=== PATIENT | male | born 1990 | race Caucasian/White ===

== ENCOUNTER 2020-05-29 11:03 | Inpatient (IN) | payer OTHER ==
--- NOTE | 2020-05-29 11:30 | PDOC ---
History of Present Illness - General Chief Complaint: Pain Stated Complaint: ABD PAIN Time Seen by Provider: 05/29/20 11:29 - History of Present Illness Initial Comments: 05/29/20 11:39 30 y.o. M no significant PMHx presenting from urgent care due to lower abdominal pain. Patient states he has been having lower abdominal pain since Thursday he does not recall any dietary changes. Patient states the pain is constant and is moderately relieved with defecation although it comes back promptly. He reports no fevers, chills, headache, nausea, vomiting or diarrhea. He has been taking tylenol for pain. PMHx: lactose intolerance Meds: In Chart Allergies: NKA Past History - Medical History Allergies/Adverse Reactions: Allergies Allergy/AdvReac Type Severity Reaction Status Date / Time No Known Allergies Allergy Verified 05/29/20 11:06 Home Medications: Ambulatory Orders NK [No Known Home Medication] 05/29/20 COPD: No - Psycho-Social/Smoking History Smoking History: Current every day smoker Have you smoked in the past 12 months: Yes Number of Cigarettes Smoked Daily: 0 Information on smoking cessation initiated: Yes - Substance Abuse Hx (Audit-C & DAST Scrn) How often the patient has a drink containing alcohol: Never Score: In Men: 4 or > Positive; In Women: 3 or > Positive: 0 Screen Result (Pos requires Nsg. Audit-10AR): Negative In the last yr the pt used illegal drug/Rx for NonMed reason: No Score: Yes response is considered Positive: 0 Screen Result (Positive result requires Nsg. DAST-10): Negative Review of Systems - Review of Systems Able to Perform ROS?: Yes Is the patient limited Citizen Of [place] proficient: No Constitutional: No: Chills, Fever HEENTM: No: Blurred Vision, Double Vision Respiratory: No: Cough, Shortness of Breath Cardiac (ROS): No: Chest Pain, Lightheadedness ABD/GI: Yes: Abdominal cramping. No: Constipated, Diarrhea, Nausea, Vomiting : No: Burning, Dysuria Musculoskeletal: No: Back Pain, Muscle Weakness Integumentary: No: Bruising, Pruritus, Rash Neurological: No: Headache, Numbness, Dizziness Hematologic/Lymphatic: No: Blood Clots, Easy Bruising *Physical Exam - Vital Signs Last Vital Signs Temp Pulse Resp BP Pulse Ox 100.2 F H 68 18 139/80 100 05/29/20 11:07 05/29/20 11:07 05/29/20 11:07 05/29/20 11:07 05/29/20 11:07 - Physical Exam General Appearance: Yes: Nourished, Appropriately Dressed. No: Apparent Distress Respiratory/Chest: positive: Lungs Clear, Normal Breath Sounds. negative: Chest Tender, Respiratory Distress, Accessory Muscle Use, Crackles, Rales, Stridor, Wheezing Cardiovascular: positive: Regular Rhythm, Regular Rate. negative: Edema, JVD, Murmur Gastrointestinal/Abdominal: positive: Normal Bowel Sounds, Tender (Suprapubic). negative: Flat, Soft, Guarding, Rebound, Tenderness Musculoskeletal: positive: Normal Inspection, CVA Tenderness Extremity: positive: Normal Inspection. negative: Tender, Coldness, Pedal Edema, Swelling, Calf Tenderness Integumentary: positive: Normal Color, Dry, Warm. negative: Rash, Swelling Neurologic: positive: Fully Oriented, Alert, Normal Mood/Affect, Normal Response ED Treatment Course - LABORATORY CBC & Chemistry Diagram: 05/31/20 07:15 05/31/20 07:15 Medical Decision Making - Medical Decision Making 05/29/20 11:43 30 y.o. M no significant PMHx presenting from urgent care due to lower abdominal pain. DDx: Appendicitis, Colitis, pancreatitis, UTI, hernia, Labs: WBC 20.1, Na 138, K 4.6, TBili 1.2, Alk Phos 166, Lipase 49 CT: Findings suggestive of colitis with possible infectious or inflammatory etiology, however diverticulitis should also be considered given the context of few small scattered diverticuli. UA: 1+ Ketones Given 1 dose of zosyn in the ED Dispo: Admit to med surg 05/29/20 17:44 Discharge - Discharge Information Problems reviewed: Yes Clinical Impression/Diagnosis: Segmental colitis associated with diverticulosis - Follow up/Referral - Patient Discharge Instructions - Post Discharge Activity
[2020-05-29] MEDS ORDERED: ACETAMINOPHEN 1000 MG/100 ML VIAL (NON FORMULARY) IVPB ONE (11:56)
[2020-05-29] MEDS ORDERED: ACETAMINOPHEN INJECTION 100 ML IVPB ONE (12:13)
[2020-05-29 12:24] LABS: BASO % 0.2 % (0-2.0); EOS % 0.6 % (0-4.5); HEMATOCRIT 40.1 % (35.4-49); HEMOGLOBIN 13.2 GM/dL (11.7-16.9); LYMPH % 8.4 % (8-40); MCH 31.1 pg (25.7-33.7); MEAN CELL VOLUME 94.3 fl (80-96); MEAN PLT VOLUME 9.7 fl (7.5-11.1); MONO % 6.9 % (3.8-10.2); NEUT % 83.9 % (42.8-82.8); PLATELET COUNT 206 K/MM3 (134-434); RBC 4.25 M/mm3 (4.00-5.60); RDW 12.7 % (11.9-15.9); WHITE BLOOD COUNT 20.1 K/mm3 (4.0-10.0)
[2020-05-29 12:27] LABS: PH,URINE 6.5 (5.0-8.0); URINE APPEARANCE CLEAR; URINE BILIRUBIN NEGATIVE (NEGATIVE); URINE COLOR YELLOW; URINE GLUCOSE (UA) NEGATIVE (NEGATIVE); URINE KETONE 1+ (NEGATIVE); URINE LEUK ESTERASE NEGATIVE (NEGATIVE); URINE NITRITE NEGATIVE (NEGATIVE); URINE PROTEIN NEGATIVE (NEGATIVE)
[2020-05-29] MEDS ORDERED: PIPERACILLIN/TAZOB 3.375 GM 4.5 GM in DEXTROSE 5%-WATER - 50 ML IVPB ONE (12:34)
[2020-05-29] MEDS ORDERED: PIPERACILLIN/TAZOB 4.5 GM 4.5 GM/100 ML BAG IVPB ONE (12:44)
[2020-05-29 13:07] LABS: BILIRUBIN,TOTAL 1.2 mg/dL (0.2-1); CALCIUM 9.5 mg/dL (8.5-10.1); CREATININE 1.1 mg/dL (0.55-1.3); POTASSIUM 4.6 mmol/L (3.5-5.1); TOT PROT 8.3 g/dl (6.4-8.2)
--- NOTE | 2020-05-29 13:35 | PDOC ---
Documentation entered by Adalberto Reynoso SCRIBE, acting as scribe for Jennifer Moser MD. Jennifer Moser MD: This documentation has been prepared by the vidaibe, Adalberto Reynoso SCRIBE, under my direction and personally reviewed by me in its entirety. I confirm that the documentation accurately reflects all work, treatment, procedures, and medical decision making performed by me. Attending Attestation - Resident Resident Name: ChenteSang - ED Attending Attestation I have performed the following: I have examined & evaluated the patient, The case was reviewed & discussed with the resident, I agree w/resident's findings & plan, Exceptions are as noted - HPI HPI: 05/29/20 11:58 The patient is a 30 year old male with no significant past medical history who presents to the emergency department, sent from Urgent Care for evaluation of lower abdominal pain that began four days ago. The patient describes pain is constant and mildly improved with bowel movements. He states the pain is the worst in the LLQ. Denies testicular pain, penile DC. Denies dysuria, hematuria, urinary frequency. He notes taking Tylenol with minimal relief. Denies hx similar pain. Pt sexually active with 1 partner, denies hx STI. Denies changes in diet. The patient denies chest/back pain, cough, and shortness of breath. Denies fever, chills, nausea, vomiting, and/or any GI symptoms. Denies any other symptoms. Allergies: NKA, lactose intolerance Social Hx: The patient reports he is a current every day smoker. PCP: Dr. Cardoza - Physicial Exam PE: 05/29/20 11:52 GENERAL: Awake, alert, and fully oriented, in no acute distress. Febrile orally to 100.3 EYES: PERRLA, EOMI, sclera anicteric, conjunctiva clear ENT: Nares patent, oropharynx clear without exudates. Moist mucosa NECK: Normal ROM, supple, no lymphadenopathy, JVD, or masses LUNGS: Breath sounds equal, clear to auscultation bilaterally. No wheezes, and no crackles HEART: Regular rate and rhythm, normal S1 and S2, no murmurs, rubs or gallops ABDOMEN: Soft, +suprapubic and LLQ ttp, normoactive bowel sounds. No guarding, no rebound. No masses. No CVAT : Normal ext genitalia, no penile or testicular ttp, no DC, no LAD or masses in groin EXTREMITIES: Normal range of motion, no edema. No clubbing or cyanosis. No cords, erythema, or tenderness NEUROLOGICAL: Normal speech, cranial nerves intact, equal strength and sensation b/l SKIN: Warm, Dry, normal turgor, no rashes or lesions noted." - Medical Decision Making 05/29/20 13:34 30yo M prsents to the ED with suprapubic/LLQ pain, febrile here but not toxic appearing DDx diverticulitis vs UTI vs colitis vs enteritis Plan -labs -UA -CTAP w IV contrast -pain control -reassess 05/29/20 16:23 WBC 20, pt covered with zosyn pain well controlled CTAP with diverticulitis +/- colitis Plan to admit for Iv abx and GI c/s Discharge - Discharge Information Problems reviewed: Yes - Follow up/Referral Referrals: Susan Cardoza MD [Primary Care Provider] - - Patient Discharge Instructions - Post Discharge Activity
[2020-05-29 13:57] LABS: ANISOCYTOSIS 0; HELMET CELLS 0; HOWELL-JOLLY BODIES 0; MACROCYTOSIS 0; OVALOCYTE 0; PLATELET ESTIMATE NORMAL; ROULEAU 0; SICKELED CELLS 0; TARGET CELLS 0; TEAR DROP CELLS 0; TOXIC GRANULATION 0
--- NOTE | 2020-05-29 17:20 | HP ---
CHIEF COMPLAINT: abdominal cramping PCP: HISTORY OF PRESENT ILLNESS: Patient is a 30 year old male with history of lactose intolerance presents with complaint of lower abdominal cramping. Endorses symptoms began four days ago with sudden onset. Localized to infraumbilical abdominal area, without radiation. He initially thought the symptoms were similar to his symptoms after consuming lactose, however the symptoms continued to progress. He attempted Gas- X, Tums, and Tylenol which were minimally palliative. He has been tolerating oral intake- last ate turkey meatball dinner yesterday evening. His last bowel movement was last night, solid without melena or hematochezia. He denies any vomiting. Patient denies subjective fevers, chills, shortness of breath, chest pain, palpitations, nausea, vomiting. Denies prior colonoscopy, or upper endoscopy. ER course was notable for: (1) CT abdomen, pelvis (2) (3) Recent Travel: denies PAST MEDICAL HISTORY: lactose intolerance PAST SURGICAL HISTORY: denies FAMILY HISTORY: Unremarkable Social History: Lives with female partner, and child. Works as musician, produces beats. Independent in activities of daily living. Smoking: Denies smoking cigarettes Alcohol: Endorses 1-2 cups of Tequila on occasion Drugs: Admits smoking 3-4 marijuana cigarettes daily. Last smoked yesterday. Allergies No Known Allergies Allergy (Verified 05/29/20 11:06) HOME MEDICATIONS: REVIEW OF SYSTEMS CONSTITUTIONAL: Absent: fever, chills, diaphoresis, generalized weakness, malaise, loss of appetite, weight change HEENT: Absent: rhinorrhea, nasal congestion, throat pain, throat swelling, difficulty swallowing, mouth swelling, ear pain, eye pain, visual changes CARDIOVASCULAR: Absent: chest pain, syncope, palpitations, irregular heart rate, lightheadedness, peripheral edema RESPIRATORY: Absent: cough, shortness of breath, dyspnea with exertion, orthopnea, wheezing, stridor, hemoptysis GASTROINTESTINAL: Admits: abdominal cramping, bloating. Absent: nausea, vomiting, diarrhea, constipation, melena, hematochezia GENITOURINARY: Absent: dysuria, frequency, urgency, hesitancy, hematuria, flank pain, genital pain MUSCULOSKELETAL: Absent: myalgia, arthralgia, joint swelling, back pain, neck pain SKIN: Absent: rash, itching, pallor HEMATOLOGIC/IMMUNOLOGIC: Absent: easy bleeding, easy bruising, lymphadenopathy, frequent infections ENDOCRINE: Absent: unexplained weight gain, unexplained weight loss, heat intolerance, cold intolerance NEUROLOGIC: Absent: headache, focal weakness or paresthesias, dizziness, unsteady gait, seizure, mental status changes, bladder or bowel incontinence PSYCHIATRIC: Absent: anxiety, depression, suicidal or homicidal ideation, hallucinations. PHYSICAL EXAMINATION Vital Signs - 24 hr 05/29/20 11:07 Temperature 100.2 F H Pulse Rate 68 Respiratory 18 Rate Blood Pressure 139/80 O2 Sat by Pulse 100 Oximetry (%) GENERAL: The patient is awake, alert, and fully oriented, in no acute distress. HEAD: Normocephalic, atraumatic. EYES: PERRL, extraocular movements intact, sclera anicteric, conjunctiva clear. ENT: Oropharynx clear, without erythema or exudates. Moist mucous membranes. NECK: Trachea midline, full range of motion. Supple without lymphadenopathy. LUNGS: Breath sounds equal, clear to auscultation bilaterally. No wheezes, no crackles. No accessory muscle use. HEART: Regular rate and rhythm. S1, S2 without murmur, rub or gallop. ABDOMEN: Soft, nondistended. Tender to deep palpation at left lower, and right lower abdominal quadrants. No rebound tenderness, no guarding. Normoactive bowel sounds x4 quadrants. No hepatosplenomegaly, no masses appreciated. EXTREMITIES: 2+ radial, dorsalis pedis pulses bilaterally. Warm, well-perfused. No lower extremity edema bilaterally. NEUROLOGICAL: Cranial nerves II through XII grossly intact. Normal speech. No gross focal deficits. PSYCH: Normal mood, normal affect upon my encounter. SKIN: Warm, dry. Laboratory Results - last 24 hr 05/29/20 05/29/20 05/29/20 12:00 12:00 12:00 WBC 20.1 H RBC 4.25 Hgb 13.2 Hct 40.1 MCV 94.3 MCH 31.1 MCHC 33.0 RDW 12.7 Plt Count 206 MPV 9.7 Absolute Neuts (auto) 16.8 H Neutrophils % 83.9 H Neutrophils % (Manual) 75.8 Band Neutrophils % 0.0 Lymphocytes % 8.4 Lymphocytes % (Manual) 16.8 Monocytes % 6.9 Monocytes % (Manual) 6 Eosinophils % 0.6 Eosinophils % (Manual) 0.0 Basophils % 0.2 Basophils % (Manual) 0.0 Myelocytes % (Man) 0 Promyelocytes % (Man) 0 Blast Cells % (Manual) 0 Nucleated RBC % 0 Metamyelocytes 0 Hypochromia 0 Toxic Granulation 0 Dohle Bodies 0 Platelet Estimate Normal Polychromasia 0 Poikilocytosis 0 Basophilic Stippling 0 Anisocytosis 0 Microcytosis 0 Macrocytosis 0 Spherocytes 0 Sickle Cells 0 Target Cells 0 Tear Drop Cells 0 Ovalocytes 0 Stomatocytes 0 Helmet Cells 0 [place] Bodies 0 [place] Rings 0 [place] Cells 0 Acanthocytes (Spur) 0 Rouleaux 0 Fragmented RBCs 0 Schistocytes 0 Sodium 138 Potassium 4.6 Chloride 103 Carbon Dioxide 30 Anion Gap 5 L BUN 12.0 Creatinine 1.1 Est GFR (CKD-EPI)AfAm 103.85 Est GFR (CKD-EPI)NonAf 89.61 Random Glucose 99 Calcium 9.5 Total Bilirubin 1.2 H AST 27 ALT 55 Alkaline Phosphatase 166 H Total Protein 8.3 H Albumin 4.0 Lipase 49 L Urine Color Yellow Urine Appearance Clear Urine pH 6.5 Ur Specific [place] 1.023 Urine Protein Negative Urine Glucose (UA) Negative Urine Ketones 1+ H Urine Blood Negative Urine Nitrite Negative Urine Bilirubin Negative Urine Urobilinogen 1.0 Ur Leukocyte Esterase Negative ASSESSMENT/PLAN: Patient is a 30 year old male with history of lactose intolerance presents with complaint of lower abdominal cramping. Colitis vs. Diverticulitis -CT abdomen, pelvis reveals scattered diverticula, with thickening of distal sigmoid colon, concerning for colitis, however cannot exclude diverticulitis -WBC 20, Temperature 100.2F -Maintain NPO for now -IV normal saline at 100mL/ hour -GI recommendations (Dr. Barnes) appreciated -ID evaluation ( ) appreciated Hyperbilirubinemia -Total bilirubin 1.2, without rise on AST/ ALT. -Obtain direct bilirubin. Will perform right upper quadrant ultrasound to evaluate for biliary stone -Monitor transaminases History of marijuana use -Counselled regarding abstinence FEN -IV normal saline at 100mL/ hour -Follow BMP -NPO Prophylaxis -Lovenox 40mg subq daily Disposition -Admit to medical- surgical floor Family Medical History Family History: Unremarkable Visit type - Emergency Visit Emergency Visit: Yes ED Registration Date: 05/29/20 Care time: The patient presented to the Emergency Department on the above date and was hospitalized for further evaluation of their emergent condition. - New Patient This patient is new to me today: Yes Date on this admission: 05/29/20 - Critical Care Critical Care patient: No ATTENDING PHYSICIAN STATEMENT I saw and evaluated the patient. I reviewed the resident's note and discussed the case with the resident. I agree with the resident's findings and plan as documented. SUBJECTIVE: OBJECTIVE: ASSESSMENT AND PLAN:
[2020-05-29] MEDS ORDERED: PIPERACILLIN/TAZOB 3.375 GM 3.375 GM/50 ML BAG IVPB ONE (17:47)
[2020-05-29 17:48] LABS: BILIRUBIN,DIRECT 0.3 mg/dL (0.0-0.2)
[2020-05-29] MEDS: SODIUM CHLORIDE 1,000 ML IV SCH (18:05)
[2020-05-29] MEDS: PIPERACILLIN/TAZOB 3.375 GM 3.375 GM in DEXTROSE 5%-WATER - 50 ML IVPB SCH (18:05)
--- NOTE | 2020-05-29 22:02 | PN ---
Teaching Attending Note Name of Resident: Jamel Luna ATTENDING PHYSICIAN STATEMENT I saw and evaluated the patient. I reviewed the resident's note and discussed the case with the resident. I agree with the resident's findings and plan as documented. SUBJECTIVE: Patient seen and examined at bedside, admitted for colitis, likely infectious. VSS. OBJECTIVE: GA AAox3, NAD HEENT NC/AT, EOMI, neck supple, no oral ulcers Chest CTAB CVS s1, s2+, RRR Abd lower abd. tenderness, BS+, no guarding, ND Ext no LE edema Vital Signs (72 hours) 05/29/20 05/29/20 11:07 18:03 Temperature 100.2 F H Pulse Rate 68 Pulse Rate [ 68 Right Radial] Respiratory 18 18 Rate Blood Pressure 139/80 Blood Pressure 142/80 [Left Arm] O2 Sat by Pulse 100 100 Oximetry (%) Laboratory Results - last 24 hr 05/29/20 05/29/20 05/29/20 12:00 12:00 12:00 WBC 20.1 H RBC 4.25 Hgb 13.2 Hct 40.1 MCV 94.3 MCH 31.1 MCHC 33.0 RDW 12.7 Plt Count 206 MPV 9.7 Absolute Neuts (auto) 16.8 H Neutrophils % 83.9 H Neutrophils % (Manual) 75.8 Band Neutrophils % 0.0 Lymphocytes % 8.4 Lymphocytes % (Manual) 16.8 Monocytes % 6.9 Monocytes % (Manual) 6 Eosinophils % 0.6 Eosinophils % (Manual) 0.0 Basophils % 0.2 Basophils % (Manual) 0.0 Myelocytes % (Man) 0 Promyelocytes % (Man) 0 Blast Cells % (Manual) 0 Nucleated RBC % 0 Metamyelocytes 0 Hypochromia 0 Toxic Granulation 0 Dohle Bodies 0 Platelet Estimate Normal Polychromasia 0 Poikilocytosis 0 Basophilic Stippling 0 Anisocytosis 0 Microcytosis 0 Macrocytosis 0 Spherocytes 0 Sickle Cells 0 Target Cells 0 Tear Drop Cells 0 Ovalocytes 0 Stomatocytes 0 Helmet Cells 0 [place] Bodies 0 [place] Rings 0 [place] Cells 0 Acanthocytes (Spur) 0 Rouleaux 0 Fragmented RBCs 0 Schistocytes 0 Sodium 138 Potassium 4.6 Chloride 103 Carbon Dioxide 30 Anion Gap 5 L BUN 12.0 Creatinine 1.1 Est GFR (CKD-EPI)AfAm 103.85 Est GFR (CKD-EPI)NonAf 89.61 Random Glucose 99 Calcium 9.5 Total Bilirubin 1.2 H Direct Bilirubin 0.3 H AST 27 ALT 55 Alkaline Phosphatase 166 H Total Protein 8.3 H Albumin 4.0 Lipase 49 L Urine Color Yellow Urine Appearance Clear Urine pH 6.5 Ur Specific [place] 1.023 Urine Protein Negative Urine Glucose (UA) Negative Urine Ketones 1+ H Urine Blood Negative Urine Nitrite Negative Urine Bilirubin Negative Urine Urobilinogen 1.0 Ur Leukocyte Esterase Negative Home Medications Medication Instructions Recorded NK [No Known Home Medication] 05/29/20 Current Medications Generic Name Dose Route Start Last Admin Trade Name Freq PRN Reason Stop Dose Admin Enoxaparin Sodium 40 mg 05/30/20 10:00 Lovenox - SQ DAILY ZUNILDA Sodium Chloride 1,000 mls @ 100 mls/hr 05/29/20 17:15 05/29/20 18:05 Normal Saline - IV 05/30/20 10:00 100 mls/hr ASDIR ZUNILDA Administration Piperacillin Sod/Tazobactam 50 mls @ 100 mls/hr 05/29/20 18:00 Sod 3.375 gm/ Dextrose IVPB Q8H-IV ZUNILDA Protocol Piperacillin Sod/Tazobactam 50 mls @ 100 mls/hr 05/29/20 18:00 05/29/20 18:05 Sod 3.375 gm/ Dextrose IVPB 05/30/20 10:29 100 mls/hr Q8H-IV ZUNILDA Administration Protocol ASSESSMENT AND PLAN: 30 M Colitis likely infectious Suspected ?UC v.s. crohn's Plan: NPO, Aggressive IVF Cont. Zosyn if diarrhea occurs send c. diff Avoid NSAIDs Will need colonoscopy likely as OP GI evaluation DVT ppx: Lovenoc SC
[2020-05-30] MEDS ORDERED: ACETAMINOPHEN 1000 MG/100 ML VIAL (NON FORMULARY) IVPB ONE (00:38)
[2020-05-30] MEDS ORDERED: PIPERACILLIN/TAZOBACTAM 3.375 GM VIAL IVPB ONE ×2 (00:48→10:54)
[2020-05-30] MEDS ORDERED: DEXTROSE 5%-WATER - 50 ML IVPB ONE ×3 (00:48→15:42)
[2020-05-30 01:42] VITALS: BMI 28.3
[2020-05-30] MEDS: PIPERACILLIN/TAZOB 3.375 GM 3.375 GM in DEXTROSE 5%-WATER - 50 ML IVPB SCH ×4 (02:15→14:23)
[2020-05-30] MEDS: SODIUM CHLORIDE 1,000 ML IV SCH (03:08)
--- NOTE | 2020-05-30 07:37 | PN ---
Progress Note (short form) - Note Progress Note: GI CONSULT DICTATED CLEAR LIQUID DIET C/W ABX STOOL CULTURE / CDIFF IF DEVELOPS DIARRHEA OUTPT DIAGNOSTIC COLONOSCOPY IN 6-8 WEEKS
[2020-05-30 09:10] LABS: MCH 31.4 pg (25.7-33.7); MCHC 33.4 g/dl (32.0-35.9); MEAN CELL VOLUME 93.8 fl (80-96); MEAN PLT VOLUME 9.9 fl (7.5-11.1); PLATELET COUNT 187 K/MM3 (134-434); RBC 3.84 M/mm3 (4.00-5.60); RDW 12.2 % (11.9-15.9); WHITE BLOOD COUNT 15.2 K/mm3 (4.0-10.0)
[2020-05-30 09:38] LABS: ALBUMIN 3.4 g/dl (3.4-5.0); BILIRUBIN,TOTAL 2.1 mg/dL (0.2-1); BLOOD UREA NITROGEN 16.7 mg/dL (7-18); CALCIUM 8.9 mg/dL (8.5-10.1); CREATININE 0.9 mg/dL (0.55-1.3); MAGNESIUM 2.2 mg/dL (1.8-2.4); PHOSPHOROUS 3.6 mg/dL (2.5-4.9); POTASSIUM 3.7 mmol/L (3.5-5.1); TOT PROT 7.2 g/dl (6.4-8.2)
--- NOTE | 2020-05-30 09:52 | EKG ---
Test Reason : Blood Pressure : / mmHG Vent. Rate : 073 BPM Atrial Rate : 073 BPM P-R Int : 146 ms QRS Dur : 082 ms QT Int : 358 ms P-R-T Axes : 055 022 010 degrees QTc Int : 394 ms NORMAL SINUS RHYTHM WITH SINUS ARRHYTHMIA NORMAL ECG NO PREVIOUS ECGS AVAILABLE Confirmed by MD Raffi, Marlon ([id number]) on 05/30/2020 9:51:26 AM Referred By: Confirmed By:Marlon Nugent MD
--- NOTE | 2020-05-30 10:12 | PN ---
Physical Exam: SUBJECTIVE: Patient seen and examined at the bedside. In no acute distress. Tells me he has not eaten any food since Thursday evening. Denies abdominal paredes, nausea or vomiting. OBJECTIVE: Patient is a 30 year old male with past medical history of childhood asthma. He presents to the ED on 05/29/2020 with abdominal pain and is found to have colitis and diverticulitis per CT scan. Patient states symptoms began four days ago with sudden onset. Localized to umbilical abdominal area, without radiation. abdominal pain has since resolved. imaging: covid 19: negative abd/pelvis ct with contrast 05/29/2020: significant distal sigmoid colon wall thickening with adjacent fat stranding and prominent mesenteric lymph nodes. findings suggestive of colitis and possible infectious or inflammagtory etiology. diverticulitis should also be considered given context of few scattered diverticuli noted in the colon. Period Temp Pulse Resp BP Sys/Aguila Pulse Ox Last 24 Hr 98.3 F-100.2 F 68-111 16-18 133-142/80-97 96-100 GENERAL: The patient is awake, alert, and fully oriented, in no acute distress. HEAD: Normal with no signs of trauma. EYES: PERRL, extraocular movements intact, sclera anicteric, conjunctiva clear. No ptosis. ENT: Ears normal, nares patent, oropharynx clear without exudates, moist mucous membranes. NECK: Trachea midline, full range of motion, supple. LUNGS: Breath sounds equal, clear to auscultation bilaterally, no wheezes HEART: Regular rate and rhythm ABDOMEN: Soft, nontender, nondistended, normoactive bowel sounds, no guarding, no rebound EXTREMITIES: no edema. NEUROLOGICAL: Normal speech, gait not observed. PSYCH: Normal mood, normal affect. SKIN: Warm, dry, normal turgor, no rashes or lesions noted Laboratory Results - last 24 hr 05/29/20 05/29/20 05/29/20 12:00 12:00 12:00 WBC 20.1 H RBC 4.25 Hgb 13.2 Hct 40.1 MCV 94.3 MCH 31.1 MCHC 33.0 RDW 12.7 Plt Count 206 MPV 9.7 Absolute Neuts (auto) 16.8 H Neutrophils % 83.9 H Neutrophils % (Manual) 75.8 Band Neutrophils % 0.0 Lymphocytes % 8.4 Lymphocytes % (Manual) 16.8 Monocytes % 6.9 Monocytes % (Manual) 6 Eosinophils % 0.6 Eosinophils % (Manual) 0.0 Basophils % 0.2 Basophils % (Manual) 0.0 Myelocytes % (Man) 0 Promyelocytes % (Man) 0 Blast Cells % (Manual) 0 Nucleated RBC % 0 Metamyelocytes 0 Hypochromia 0 Toxic Granulation 0 Dohle Bodies 0 Platelet Estimate Normal Polychromasia 0 Poikilocytosis 0 Basophilic Stippling 0 Anisocytosis 0 Microcytosis 0 Macrocytosis 0 Spherocytes 0 Sickle Cells 0 Target Cells 0 Tear Drop Cells 0 Ovalocytes 0 Stomatocytes 0 Helmet Cells 0 [place] Bodies 0 Creede Rings 0 Wilsey Cells 0 Acanthocytes (Spur) 0 Rouleaux 0 Fragmented RBCs 0 Schistocytes 0 Sodium 138 Potassium 4.6 Chloride 103 Carbon Dioxide 30 Anion Gap 5 L BUN 12.0 Creatinine 1.1 Est GFR (CKD-EPI)AfAm 103.85 Est GFR (CKD-EPI)NonAf 89.61 Random Glucose 99 Calcium 9.5 Phosphorus Magnesium Total Bilirubin 1.2 H Direct Bilirubin 0.3 H AST 27 ALT 55 Alkaline Phosphatase 166 H Total Protein 8.3 H Albumin 4.0 Lipase 49 L Urine Color Yellow Urine Appearance Clear Urine pH 6.5 Ur Specific Vale 1.023 Urine Protein Negative Urine Glucose (UA) Negative Urine Ketones 1+ H Urine Blood Negative Urine Nitrite Negative Urine Bilirubin Negative Urine Urobilinogen 1.0 Ur Leukocyte Esterase Negative 05/30/20 05/30/20 07:50 07:50 WBC 15.2 H RBC 3.84 L Hgb 12.0 Hct 36.0 MCV 93.8 MCH 31.4 MCHC 33.4 RDW 12.2 Plt Count 187 MPV 9.9 Absolute Neuts (auto) Neutrophils % Neutrophils % (Manual) Band Neutrophils % Lymphocytes % Lymphocytes % (Manual) Monocytes % Monocytes % (Manual) Eosinophils % Eosinophils % (Manual) Basophils % Basophils % (Manual) Myelocytes % (Man) Promyelocytes % (Man) Blast Cells % (Manual) Nucleated RBC % Metamyelocytes Hypochromia Toxic Granulation Dohle Bodies Platelet Estimate Polychromasia Poikilocytosis Basophilic Stippling Anisocytosis Microcytosis Macrocytosis Spherocytes Sickle Cells Target Cells Tear Drop Cells Ovalocytes Stomatocytes Helmet Cells [place] Bodies Creede Rings Wilsey Cells Acanthocytes (Spur) Rouleaux Fragmented RBCs Schistocytes Sodium 137 Potassium 3.7 Chloride 103 Carbon Dioxide 24 Anion Gap 10 BUN 16.7 Creatinine 0.9 Est GFR (CKD-EPI)AfAm 132.37 Est GFR (CKD-EPI)NonAf 114.21 Random Glucose 62 L Calcium 8.9 Phosphorus 3.6 Magnesium 2.2 Total Bilirubin 2.1 H Direct Bilirubin AST 19 ALT 37 Alkaline Phosphatase 144 H Total Protein 7.2 Albumin 3.4 Lipase Urine Color Urine Appearance Urine pH Ur Specific [place] Urine Protein Urine Glucose (UA) Urine Ketones Urine Blood Urine Nitrite Urine Bilirubin Urine Urobilinogen Ur Leukocyte Esterase Active Medications Generic Name Dose Route Start Last Admin Trade Name Freq PRN Reason Stop Dose Admin Enoxaparin Sodium 40 mg 05/30/20 10:00 Lovenox - SQ DAILY ZUNILDA Piperacillin Sod/Tazobactam 50 mls @ 100 mls/hr 05/29/20 18:00 Sod 3.375 gm/ Dextrose IVPB Q8H-IV ZUNILDA Protocol Piperacillin Sod/Tazobactam 50 mls @ 100 mls/hr 05/29/20 18:00 05/30/20 02:15 Sod 3.375 gm/ Dextrose IVPB 05/30/20 10:29 100 mls/hr Q8H-IV ZUNILDA Administration Protocol ASSESSMENT/PLAN: Problem List - Problems (1) Diverticulitis Assessment/Plan: abd/pelvis ct with contrast 05/29/2020: significant distal sigmoid colon wall thickening with adjacent fat stranding and prominent mesenteric lymph nodes. findings suggestive of colitis and possible infectious or inflammagtory etiology. diverticulitis should also be considered given context of few scattered diverticuli noted in the colon. no abdominal pain, nausea or vomiting +bowel sounds abdomen flat bili 1.2-2.1 seen by GI, started on clears monitor for pain. Code(s): K57.92 - DVTRCLI OF INTEST, PART UNSP, W/O PERF OR ABSCESS W/O BLEED (2) Colitis Assessment/Plan: on zosyn for colitis seen per CT scan. Started on clears Code(s): K52.9 - NONINFECTIVE GASTROENTERITIS AND COLITIS, UNSPECIFIED (3) DVT prophylaxis Assessment/Plan: on lovenox 40 Code(s): Z29.9 - ENCOUNTER FOR PROPHYLACTIC MEASURES, UNSPECIFIED (4) Leukocytosis Assessment/Plan: WBC 20 on admission, now trending down to 15.2. no fevers on zosyn for treatment of diverticulitis/colitis per CT scan monitor labs, vitals Code(s): D72.829 - ELEVATED WHITE BLOOD CELL COUNT, UNSPECIFIED Visit type - Emergency Visit Emergency Visit: Yes ED Registration Date: 05/29/20 Care time: The patient presented to the Emergency Department on the above date and was hospitalized for further evaluation of their emergent condition. - New Patient This patient is new to me today: Yes Date on this admission: 05/30/20 - Critical Care Critical Care patient: No - Discharge Referral Referred to [facility] Med P.C.: No
[2020-05-30] MEDS ORDERED: LACTATED RINGERS SOLUTION 1,000 ML/1,000 ML INFUS.BAG IV SCH (10:30)
[2020-05-30] MEDS: ENOXAPARIN NA (PORCINE) 40 MG/0.4 ML DISP.SYRIN SQ SCH ×2 (11:01→11:27)
--- NOTE | 2020-05-30 12:50 | CONS ---
DATE OF CONSULTATION: DATE OF DICTATION: 05/30/2020 HISTORY: Patient is a 30-year-old male with a past medical history of lactose intolerance who states his symptoms began about 3 to 4 days prior to admission with left lower quadrant abdominal discomfort. He states he was having what sounds like constipation and incomplete evacuation a couple days prior to these symptoms developing. He also felt bloated and took Tums and Tylenol with minimal relief. His symptoms worsened prompting him to come to the emergency room. He denies nausea, vomiting, hematochezia, melena, diarrhea, antibiotic use. He states he ate a turkey meatball dinner yesterday evening which added to his discomfort prior to coming to the hospital. He has never had a colonoscopy or upper endoscopy in the past. PAST MEDICAL & SURGICAL HISTORY: As listed in the HPI. ALLERGIES: No known drug allergies. SOCIAL HISTORY: Does not smoke. Drinks a couple of drinks occasionally. Marijuana is also used. FAMILY HISTORY: No history of GI or gynecologic malignancy or inflammatory bowel disease. HOME MEDICATIONS: None. REVIEW OF SYSTEMS: As per the HPI. PHYSICAL EXAMINATION: Vital Signs: Temperature T-max yesterday 100.2, presently 98.6, pulse rate 97, blood pressure 133/97, pulse oximetry 96% on room air. General: No acute distress. HEENT: Anicteric sclerae. Cardiovascular: S1, S2, regular rate and rhythm. Lungs: Clear bilaterally to auscultation. Abdomen: Soft and tender to deep palpation in the left lower quadrant. Extremities: No edema. LABORATORIES: White blood cell count on admission 20, presently is 15. Hemoglobin is 12 and hematocrit 36, MCV 93, platelet count 187. INR not done on this admission. Sodium 137, potassium 3.7, BUN 16 over creatinine 0.9, total bilirubin 2.1, AST 19, ALT 37, alkaline phosphatase 144. COVID-19 testing is pending. He had an abdomen and pelvic CT scan with contrast which revealed significant distal sigmoid colon thickening, fat stranding, prominent mesenteric lymph node suggestive of colitis infectious or inflammatory, also with diverticula noted. IMPRESSION: Left lower quadrant abdominal pain and fever, leukocytosis suspicious for an infectious colitis or segmental diverticular colitis. RECOMMENDATION: If he were to develop diarrhea, stool cultures should be obtained. He should be continued on antibiotics, gentle hydration, clear liquid diet. He will need a diagnostic colonoscopy which can be done as an outpatient in 6 to 8 weeks from now. Will follow. DO JORDON DIMAS/[id number]
--- NOTE | 2020-05-30 12:55 | CON.ID ---
Consult Consult Specialty:: infectious disease Referred by:: hospitalist Reason for Consultation:: abdominal pain - History of Present Illness Chief Complaint: abdominal pain History of Present Illness: 30 yo man otherwise healthy- developed crampy abdominal pain over the weekend - lower abdomen more right sided, no diarrhea no vomiting no fever tried gasx and tyelenol pain persisted so came to ED no recent antibiotics noted to have leukocytosis and sigmoid colitis with diverticulosis on ct scan started on zosyn feels improved today +BM yesterday- nonbloody one loose BM this am denies family history of IBD - History Source History Provided By: Patient Limitations to Obtaining History: No Limitations - Past Surgical History Past Surgical History: Yes: None - Alcohol/Substance Use Hx Alcohol Use: Yes (social beer) History of Substance Use: reports: Marijuana - Smoking History Smoking history: Never smoked Have you smoked in the past 12 months: Yes Aproximately how many cigarettes per day: 0 - Social History ADL: Independent Occupation: in [employer] industry History of Recent Travel: No Home Medications - Allergies Allergies/Adverse Reactions: Allergies Allergy/AdvReac Type Severity Reaction Status Date / Time No Known Allergies Allergy Verified 05/29/20 11:06 - Home Medications Home Medications: Ambulatory Orders NK [No Known Home Medication] 05/29/20 Family Medical History Family History: Denies Review of Systems - Review of Systems Constitutional: reports: No Symptoms. denies: Chills, Fever Eyes: reports: No Symptoms HENT: reports: No Symptoms Neck: reports: No Symptoms Cardiovascular: reports: No Symptoms Respiratory: reports: No Symptoms Gastrointestinal: reports: Abdominal Pain. denies: Bloating, Constipation, Diarrhea, Dysphagia, Melena, Nausea, Rectal Bleeding, Vomiting, Vomiting Blood Genitourinary: reports: No Symptoms Musculoskeletal: reports: No Symptoms Integumentary: reports: No Symptoms Physical Exam Vital Signs: Vital Signs Temperature 98.6 F 05/30/20 06:00 Pulse Rate 111 H 05/30/20 06:00 Respiratory Rate 18 05/30/20 06:00 Blood Pressure 133/80 05/30/20 06:00 O2 Sat by Pulse Oximetry (%) 98 05/30/20 06:00 Constitutional: Yes: Well Nourished, No Distress Eyes: Yes: Conjunctiva Clear HENT: Yes: Atraumatic, Normocephalic Neck: Yes: Supple Cardiovascular: Yes: Regular Rate and Rhythm Respiratory: Yes: Regular, CTA Bilaterally Gastrointestinal: Yes: Normal Bowel Sounds, Soft. No: Tenderness, Tenderness, Rebound ...Rectal Exam: Yes: Deferred Edema: No Psychiatric: Yes: Alert, Oriented Labs: CBC, BMP 05/30/20 07:50 05/30/20 07:50 Microbiology 05/29/20 12:50 Blood - Peripheral Venous Blood Culture - Preliminary NO GROWTH OBTAINED AFTER 24 HOURS, INCUBATION TO CONTINUE FOR 4 DAYS. 05/29/20 12:50 Blood - Peripheral Venous Blood Culture - Preliminary NO GROWTH OBTAINED AFTER 24 HOURS, INCUBATION TO CONTINUE FOR 4 DAYS. Imaging - Results Cat Scan: Report Reviewed Problem List - Problems (1) Segmental colitis associated with diverticulosis Code(s): K50.10 - CROHN'S DISEASE OF LARGE INTESTINE WITHOUT COMPLICATIONS; K57.30 - DVRTCLOS OF LG INT W/O PERFORATION OR ABSCESS W/O BLEEDING Assessment/Plan diffeeential includes diverticulitis, infectious or inflammatory f/u with GI continue iv antibiotics rocephin/flagyl should be adequate advance diet per GI repat labs and crp in am f/u cultures
[2020-05-30] MEDS ORDERED: cefTRIAXone SODIUM 1 GM VIAL ONE (15:42)
[2020-05-30] MEDS: D5-1/2NS+20 MEQ KCL - 20 MEQ/1,000 ML INFUS.BAG IV SCH (15:47)
[2020-05-30] MEDS: CEFTRIAXONE 1 GM in DEXTROSE 5%-WATER - 50 ML IVPB SCH (15:48)
[2020-05-30] MEDS ORDERED: ACETAMINOPHEN 325 MG TABLET (FP) PO PRN (17:10)
[2020-05-31] MEDS: D5-1/2NS+20 MEQ KCL - 20 MEQ/1,000 ML INFUS.BAG IV SCH ×2 (04:27→16:45)
[2020-05-31 07:55] LABS: BASO % 0.3 % (0-2.0); EOS % 2.8 % (0-4.5); HEMATOCRIT 34.4 % (35.4-49); LYMPH % 23.2 % (8-40); MCHC 34.9 g/dl (32.0-35.9); MEAN CELL VOLUME 94.3 fl (80-96); MEAN PLT VOLUME 9.6 fl (7.5-11.1); MONO % 8.6 % (3.8-10.2); NEUT % 65.1 % (42.8-82.8); PLATELET COUNT 184 K/MM3 (134-434); RBC 3.64 M/mm3 (4.00-5.60); RDW 12.2 % (11.9-15.9); WHITE BLOOD COUNT 9.8 K/mm3 (4.0-10.0)
[2020-05-31 08:11] LABS: ALBUMIN 3.1 g/dl (3.4-5.0); BILIRUBIN,TOTAL 1.7 mg/dL (0.2-1); BLOOD UREA NITROGEN 7.8 mg/dL (7-18); CALCIUM 8.9 mg/dL (8.5-10.1); CREATININE 0.9 mg/dL (0.55-1.3); MAGNESIUM 2.2 mg/dL (1.8-2.4); POTASSIUM 3.7 mmol/L (3.5-5.1)
[2020-05-31] MEDS ORDERED: DEXTROSE 5%-WATER - 50 ML IVPB ONE (09:52)
[2020-05-31] MEDS ORDERED: cefTRIAXone SODIUM 1 GM VIAL ONE (09:52)
[2020-05-31] MEDS: ENOXAPARIN NA (PORCINE) 40 MG/0.4 ML DISP.SYRIN SQ SCH (10:21)
[2020-05-31] MEDS: CEFTRIAXONE 1 GM in DEXTROSE 5%-WATER - 50 ML IVPB SCH (11:25)
--- NOTE | 2020-05-31 13:08 | PN ---
Physical Exam: SUBJECTIVE: Patient seen and examined at the bedside. overnight reports a loose stool - semi formed followed by a liquid stool will order stool culture no fevers and wbc wnl tolerating diet without any abdominal pain or discomfort. asking to go home. OBJECTIVE: Patient is a 30 year old male with past medical history of childhood asthma. He presents to the ED on 05/29/2020 with abdominal pain and is found to have colitis and diverticulitis per CT scan. Patient states symptoms began four days ago with sudden onset. Localized to umbilical abdominal area, without radiation. abdominal pain has since resolved. imaging: covid 19: negative abd/pelvis ct with contrast 05/29/2020: significant distal sigmoid colon wall thickening with adjacent fat stranding and prominent mesenteric lymph nodes. findings suggestive of colitis and possible infectious or inflammagtory etiology. diverticulitis should also be considered given context of few scattered diverticuli noted in the colon. Vital Signs Period Temp Pulse Resp BP Sys/Aguila Pulse Ox Last 24 Hr 98.3 F-99 F 72-96 18-18 102-136/67-82 98-100 GENERAL: The patient is awake, alert, and fully oriented, in no acute distress. HEAD: Normal with no signs of trauma. EYES: PERRL, extraocular movements intact, sclera anicteric, conjunctiva clear. No ptosis. ENT: Ears normal, nares patent, oropharynx clear without exudates, moist mucous membranes. NECK: Trachea midline, full range of motion, supple. LUNGS: Breath sounds equal, clear to auscultation bilaterally, no wheezes HEART: Regular rate and rhythm ABDOMEN: Soft, nontender, nondistended, normoactive bowel sounds, no guarding, no rebound EXTREMITIES: no edema. NEUROLOGICAL: Normal speech, gait not observed. PSYCH: Normal mood, normal affect. SKIN: Warm, dry, normal turgor, no rashes or lesions noted Laboratory Results - last 24 hr 05/29/20 05/31/20 05/31/20 18:05 07:15 07:15 WBC 9.8 RBC 3.64 L Hgb 12.0 Hct 34.4 L MCV 94.3 MCH 33.0 MCHC 34.9 RDW 12.2 Plt Count 184 MPV 9.6 Absolute Neuts (auto) 6.4 Neutrophils % 65.1 D Lymphocytes % 23.2 D Monocytes % 8.6 Eosinophils % 2.8 D Basophils % 0.3 Nucleated RBC % 0 Sodium 139 Potassium 3.7 Chloride 107 Carbon Dioxide 27 Anion Gap 5 L BUN 7.8 Creatinine 0.9 Est GFR (CKD-EPI)AfAm 132.37 Est GFR (CKD-EPI)NonAf 114.21 Random Glucose 107 H Calcium 8.9 Magnesium 2.2 Total Bilirubin 1.7 H AST 16 ALT 29 Alkaline Phosphatase 133 H C-Reactive Protein 9.3 H Total Protein 7.0 Albumin 3.1 L COVID-19 (TAMAR) Not detected Active Medications Generic Name Dose Route Start Last Admin Trade Name Freq PRN Reason Stop Dose Admin Acetaminophen 650 mg 05/30/20 17:10 05/30/20 17:20 Tylenol - PO 650 mg Q6H PRN Administration PAIN LEVEL 4 - 6 Enoxaparin Sodium 40 mg 05/30/20 10:00 05/31/20 10:21 Lovenox - SQ Not Given DAILY ZUNILDA Metronidazole 500 mg in 100 mls @ 100 mls/hr 05/30/20 18:00 05/31/20 10:19 Flagyl 500mg Premixed Ivpb - IVPB 100 mls/hr Q8H-IV ZUNILDA Administration Ceftriaxone Sodium 1 gm/ 50 mls @ 200 mls/hr 05/30/20 14:30 05/31/20 11:25 Dextrose IVPB 200 mls/hr DAILY ZUNILDA Administration Protocol Potassium Chloride/Dextrose/Sod Cl 20 meq in 1,000 mls @ 100 mls/hr 05/30/20 14:15 05/31/20 04:27 D5-1/2ns+20 Meq Kcl - IV 100 mls/hr ASDIR ZUNILDA Administration ASSESSMENT/PLAN: Problem List - Problems (1) Diverticulitis Assessment/Plan: abd/pelvis ct with contrast 05/29/2020: significant distal sigmoid colon wall thickening with adjacent fat stranding and prominent mesenteric lymph nodes. findings suggestive of colitis and possible infectious or inflammagtory etiology. diverticulitis should also be considered given context of few scattered diverticuli noted in the colon. no abdominal pain, nausea or vomiting +bowel sounds abdomen flat bili 1.2-2.1, 1.7 seen by GI and patient tolerating clear liquid diet. started on full liquid diet. monitor for pain. Code(s): K57.92 - DVTRCLI OF INTEST, PART UNSP, W/O PERF OR ABSCESS W/O BLEED (2) Colitis Assessment/Plan: on zosyn for colitis seen per CT scan. diet advanced to full liquid and then regular tomorrow. Code(s): K52.9 - NONINFECTIVE GASTROENTERITIS AND COLITIS, UNSPECIFIED (3) DVT prophylaxis Assessment/Plan: on lovenox 40 Code(s): Z29.9 - ENCOUNTER FOR PROPHYLACTIC MEASURES, UNSPECIFIED (4) Leukocytosis Assessment/Plan: WBC 20 on admission, now resolved on zosyn for treatment of diverticulitis/colitis per CT scan monitor labs, vitals Code(s): D72.829 - ELEVATED WHITE BLOOD CELL COUNT, UNSPECIFIED Visit type - Emergency Visit Emergency Visit: Yes ED Registration Date: 05/29/20 Care time: The patient presented to the Emergency Department on the above date and was hospitalized for further evaluation of their emergent condition. - New Patient This patient is new to me today: No - Critical Care Critical Care patient: No - Discharge Referral Referred to [facility] Med P.C.: No
--- NOTE | 2020-05-31 14:57 | PN.GI ---
GI Progress Note Subjective: No abdominal pain Some loose bowel movements today, none prior to admission No GI complaints prior to this past thursday - Objective Vital Signs: Vital Signs Temperature 98.3 F 05/31/20 10:03 Pulse Rate 72 05/31/20 10:03 Respiratory Rate 18 05/31/20 10:03 Blood Pressure 127/82 05/31/20 10:03 O2 Sat by Pulse Oximetry (%) 100 05/31/20 10:03 Constitutional: Calm Eyes: No: Sclera Icterus Cardiovascular: Yes: Regular Rate and Rhythm Respiratory: Yes: CTA Bilaterally Gastrointestinal Inspection: No: Distention ...Auscultate: Yes: Normoactive Bowel Sounds ...Palpate: Yes: Soft. No: Hepatomegaly, Splenomegaly, Tenderness ...Percussion: No: Tympanitic Edema: No (No LE edema) Neurological: Yes: Alert Labs: CBC, BMP 05/31/20 07:15 05/31/20 07:15 Problem List - Problems (1) Colitis Assessment/Plan: Vs. colitis. Given how quick his pain has resolved with Abx therapy, acute/progressive onset of symptoms, lack of diarrheal complaints leading up to admission, Suspect sigmoid Diverticulitis that is resolving. Advise: Advance to regular diet in AM Abx per ID. total 10 days Follow-up in office in 1-2 weeks for reevaluation and to discuss follow-up colonoscopy Code(s): K52.9 - NONINFECTIVE GASTROENTERITIS AND COLITIS, UNSPECIFIED (2) Diverticulitis Code(s): K57.92 - DVTRCLI OF INTEST, PART UNSP, W/O PERF OR ABSCESS W/O BLEED
--- NOTE | 2020-05-31 16:22 | PN ---
Progress Note (short form) - Note Progress Note: abdominal pain resolved tolerating diet (not on regular food yest) two loose stools today day #3 antibiotics Vital Signs Period Temp Pulse Resp BP Sys/Aguila Pulse Ox Last 24 Hr 98.3 F-99.1 F 72-83 18-18 102-149/67-87 98-100 cor-rrr lungs clear abd soft,nt ext no edema CBC, BMP 05/31/20 07:15 05/31/20 07:15 Microbiology 05/29/20 12:50 Blood - Peripheral Venous Blood Culture - Preliminary NO GROWTH OBTAINED AFTER 48 HOURS, INCUBATION TO CONTINUE FOR 3 DAYS. 05/29/20 12:50 Blood - Peripheral Venous Blood Culture - Preliminary NO GROWTH OBTAINED AFTER 48 HOURS, INCUBATION TO CONTINUE FOR 3 DAYS. 05/29/20 11:50 Urine - Urine Clean Catch Urine Culture - Final NO GROWTH OBTAINED a/p colitis- suspected diverticulitis- can switch to po ceftin 500 bid and flagyl 500 tid when ready for discharge f/u crp in am d/w hospitalist d/w patient Problem List - Problems (1) Segmental colitis associated with diverticulosis Code(s): K50.10 - CROHN'S DISEASE OF LARGE INTESTINE WITHOUT COMPLICATIONS; K57.30 - DVRTCLOS OF LG INT W/O PERFORATION OR ABSCESS W/O BLEEDING
[2020-06-01 09:52] LABS: ALBUMIN 3.4 g/dl (3.4-5.0); BLOOD UREA NITROGEN 5.7 mg/dL (7-18); CALCIUM 9.1 mg/dL (8.5-10.1); MAGNESIUM 2.1 mg/dL (1.8-2.4); POTASSIUM 3.8 mmol/L (3.5-5.1); TOT PROT 7.5 g/dl (6.4-8.2)
[2020-06-01] MEDS ORDERED: LACTOBACILLUS ACIDOPHILUS 1 TABLET PO SCH (10:00)
[2020-06-01 10:04] LABS: BASO % 0.2 % (0-2.0); EOS % 2.3 % (0-4.5); HEMATOCRIT 35.8 % (35.4-49); HEMOGLOBIN 12.1 GM/dL (11.7-16.9); LYMPH % 26.3 % (8-40); MCH 31.7 pg (25.7-33.7); MCHC 33.7 g/dl (32.0-35.9); MEAN CELL VOLUME 94.1 fl (80-96); MEAN PLT VOLUME 9.8 fl (7.5-11.1); MONO % 9.8 % (3.8-10.2); NEUT % 61.4 % (42.8-82.8); PLATELET COUNT 211 K/MM3 (134-434); RBC 3.81 M/mm3 (4.00-5.60); RDW 12.5 % (11.9-15.9); WHITE BLOOD COUNT 9.7 K/mm3 (4.0-10.0)
[2020-06-01] MEDS ORDERED: DEXTROSE 5%-WATER - 50 ML IVPB ONE (11:15)
[2020-06-01] MEDS ORDERED: cefTRIAXone SODIUM 1 GM VIAL ONE (11:15)
[2020-06-01] MEDS: CEFTRIAXONE 1 GM in DEXTROSE 5%-WATER - 50 ML IVPB SCH (11:22)
[2020-06-01] MEDS: ENOXAPARIN NA (PORCINE) 40 MG/0.4 ML DISP.SYRIN SQ SCH (11:22)
[2020-06-01 11:28] VITALS: BP 147/86; PULSE 90; TEMP 98.8
--- NOTE | 2020-06-01 12:27 | DS ---
Physical Exam: SUBJECTIVE: Patient seen and examined at the bedside. He ate breakfast and lunch (regular diet) without any abdominal pain, nausea or vomiting. He had a small "pebble" like bowel movement overnight and no further diarrhea. He is asking me to send him home because he has a follow up appointment with Dr. Mancilla and wants to follow up outpatient. OBJECTIVE: Patient is a 30 year old male with past medical history of childhood asthma. He presents to the ED on 05/29/2020 with abdominal pain and is found to have c olitis and diverticulitis per CT scan. Patient states symptoms began four days ago with sudden onset. Localized to umbilical abdominal area, without radiation. abdominal pain has since resolved. imaging: covid 19: negative abd/pelvis ct with contrast 05/29/2020: significant distal sigmoid colon wall thickening with adjacent fat stranding and prominent mesenteric lymph nodes. findings suggestive of colitis and possible infectious or inflammatory etiology. diverticulitis should also be considered given context of few scattered diverticuli noted in the colon. Vital Signs Period Temp Pulse Resp BP Sys/[place] Pulse Ox Last 24 Hr 98.7 F-99.7 F 78-96 18-18 139-165/77-88 97-100 PHYSICAL EXAM GENERAL: The patient is awake, alert, and fully oriented, in no acute distress. HEAD: Normal with no signs of trauma. EYES: PERRL, extraocular movements intact, sclera anicteric, conjunctiva clear. No ptosis. ENT: Ears normal, nares patent, oropharynx clear without exudates, moist mucous membranes. NECK: Trachea midline, full range of motion, supple. LUNGS: Breath sounds equal, clear to auscultation bilaterally, no wheezes HEART: Regular rate and rhythm ABDOMEN: Soft, nontender, nondistended, normoactive bowel sounds, no guarding, no rebound EXTREMITIES: no edema. NEUROLOGICAL: Normal speech, gait not observed. PSYCH: Normal mood, normal affect. SKIN: Warm, dry, normal turgor, no rashes or lesions noted Laboratory Results - last 24 hr 05/30/20 06/01/20 06/01/20 13:20 07:35 07:35 WBC 9.7 RBC 3.81 L Hgb 12.1 Hct 35.8 MCV 94.1 MCH 31.7 MCHC 33.7 RDW 12.5 Plt Count 211 MPV 9.8 Absolute Neuts (auto) 6.0 Neutrophils % 61.4 Lymphocytes % 26.3 Monocytes % 9.8 Eosinophils % 2.3 Basophils % 0.2 Nucleated RBC % 0 Sodium 142 Potassium 3.8 Chloride 108 H Carbon Dioxide 27 Anion Gap 7 L BUN 5.7 L Creatinine 1.0 Est GFR (CKD-EPI)AfAm 116.54 Est GFR (CKD-EPI)NonAf 100.55 Random Glucose 81 Calcium 9.1 Magnesium 2.1 Total Bilirubin 1.0 AST 16 ALT 30 Alkaline Phosphatase 131 H C-Reactive Protein 5.4 H Total Protein 7.5 Albumin 3.4 C. trachomatis (TAMAR) Negative N.gonorrhoeae DNA (TAMAR) Negative T. vaginalis (TAMAR) Negative HOSPITAL COURSE: Date of Admission:05/29/20 Date of Discharge: 06/01/20 Minutes to complete discharge: 60 Discharge Summary Problems reviewed: Yes Reason For Visit: COLITIS DIVERTICULITIS Current Active Problems Colitis (Acute) DVT prophylaxis (Acute) Diverticulitis (Acute) Leukocytosis (Acute) Segmental colitis associated with diverticulosis (Acute) - Instructions Diet, Activity, Other Instructions: DISCHARGE YOUR VISIT You came to the hospital because were having abdominal pain and were found to have colitis and diverticulitis We treated you with IV antibiotics and IV hydration. We advanced your diet and you have tolerated it without issue. You have completed 4 days of antibiotics during your stay and we will be sending you home with antibiotics to complete 6 days at home. MEDICATIONS START Ceftin 500mg TWICE per day for 6 more days and Flagyl 500mg THREE times per day for 6 more days. START a probiotic (BACID) to help you tolerate the antibiotics. START the antibiotics tonight DIET Continue your home diet ADDITIONAL CARE Please make an appointment to see your primary care provider, 1 week from today. Please follow up with Molly for follow up and for a possible colonoscopy. ADDITIONAL INFORMATION Please call 911 or come directly to the emergency department if you experience unusual headache, vision change, shortness of breath, chest pain, numbness, tingling, loss of alertness/awareness, loss of function, unusual bleeding or any alarming symptoms. Thank you for allowing us to care for you. [facility] Referrals: Carlos A Mancilla DO [Staff Physician] - Susan Cardoza MD [Primary Care Provider] - Disposition: HOME - Home Medications Comprehensive Discharge Medication List: Ambulatory Orders Cefuroxime Axetil [Ceftin -] 500 mg PO Q12H #12 tablet 06/01/20 Lactobacillus Acidophilus [Bacid -] 1 tab PO DAILY #30 tab 06/01/20 metroNIDAZOLE [Flagyl -] 500 mg PO DAILY #18 tablet 06/01/20 Problem List - Problems (1) Diverticulitis Code(s): K57.92 - DVTRCLI OF INTEST, PART UNSP, W/O PERF OR ABSCESS W/O BLEED (2) Colitis Code(s): K52.9 - NONINFECTIVE GASTROENTERITIS AND COLITIS, UNSPECIFIED (3) DVT prophylaxis Code(s): Z29.9 - ENCOUNTER FOR PROPHYLACTIC MEASURES, UNSPECIFIED (4) Leukocytosis Code(s): D72.829 - ELEVATED WHITE BLOOD CELL COUNT, UNSPECIFIED This patient is new to me today: No Emergency Visit: Yes ED Registration Date: 05/29/20 Care time: The patient presented to the Emergency Department on the above date and was hospitalized for further evaluation of their emergent condition. Critical Care patient: No - Discharge Referral Referred to [facility] No
== END 2020-06-01 13:39 | disposition home or self-care (01) | DRG 244 ==
LOC: JER 11:03 → JERBED 17:13 → J5S 05-30 00:02
PROVIDERS: ATTEND Nurse Practitioner Family
DX: K57.32 Diverticulitis of large intestine without perforation or abscess without bleeding (principal); K52.9 Noninfective gastroenteritis and colitis, unspecified; E73.9 Lactose intolerance, unspecified; E80.6 Other disorders of bilirubin metabolism; D72.829 Elevated white blood cell count, unspecified
CPT/HCPCS: 36415; 74177-TC; 80053; 81003; 82248; 83690; 83735; 84100; 85025; 85027; 86140; 87040; 87045; 87046; 87086; 87491; 87591; 87661; 93005; 93010; 99285-25; C9803; J0131; Q9967; U0003